=== PATIENT | female | born 1945 | race Caucasian/White ===

== ENCOUNTER → 2023-04-02 15:58 | Outpatient (CLI) | payer OTHER, SELFPAY ==
[2023-04-02 17:22] LABS: Add Manual Diff / Slide Review NO; Basophils Absolute Auto 100 /uL (0-100); Basophils Percent Auto 0.8 % (0-2); Eosinophils Absolute Auto 100 /uL (0-450); Eosinophils Percent Auto 1.5 % (2-4); Hematocrit 42.9 % (36-46); Hemoglobin 14.5 g/dL (12.0-16.0); Lymphocytes Absolute Auto 1500 /uL (1100-4500); Lymphocytes Percent Auto 18.6 % (25-40); Mean Corpuscular HGB Conc 33.9 % (30-36); Mean Corpuscular Hemoglobin 31.6 PG (26-34); Mean Corpuscular Volume 93.3 fL (80-100); Monocytes Absolute Auto 700 /uL (0-900); Monocytes Percent Auto 8.1 % (3-14); Neutrophils Absolute Auto 5800 /uL (1500-7000); Platelet Count 210 X10^3/uL (150-400); Red Cell Distribution Width 12.6 % (11.6-14.8); White Blood Cell Count 8.1 X10^3/uL (4.5-11.0)
[2023-04-02 17:30] LABS: Alanine Aminotransferase 30 IU/L (<35); Albumin 4.5 g/dL (3.5-5.0); Albumin Globulin Ratio 1.4 (1.0-2.8); Alkaline Phosphatase 57 U/L (38-126); BUN Creatinine Ratio 23.2 (6-22); Bilirubin Total 0.8 mg/dL (0.2-1.3); Blood Urea Nitrogen 22 mg/dL (7-17); Calcium 10.4 mg/dL (8.4-10.2); Carbon Dioxide 20 mmol/L (22-32); Chloride 105 mmol/L (98-107); Cholesterol 189 mg/dL (140-199); Estimated Glomerular Filt Rate > 60 mL/min (>60); Globulin 3.2 g/dL (1.7-4.1); Glucose 106 mg/dL (80-110); HDL Cholesterol 42 mg/dL (40-60); HEMOLYSIS < 15 (0-50); LDL Cholesterol Calculated 113 mg/dL (<100); Potassium 3.9 mmol/L (3.4-5.1); Sodium 137 mmol/L (137-145); Total Protein 7.7 g/dL (6.3-8.2); Triglycerides 170 mg/dL (35-150)
[2023-04-02 17:31] LABS: Hemoglobin A1C% w Est Avg Glu 7.3 % (4.0-6.0)
[2023-04-02 17:32] LABS: Creatinine Urine Random 113.2 mg/dL
[2023-04-02 17:37] LABS: Microalbumin Urine Random 0.8 mg/dL (0-1.6)
[2023-04-02 17:47] LABS: Vitamin D 25 Hydroxy (D3) 50.3 ng/mL (30.0-100.0)
[2023-04-02 18:03] LABS: TSH w/ Reflex to FT4 4.51 uIU/mL (0.47-4.68)
[2023-04-02 18:21] LABS: Vitamin B12 589 pg/mL (239-931)
[2023-04-03 15:09] LABS: Aspartate Aminotransferase 36 IU/L (14-36)
[2023-04-03 18:23] LABS: Hep C Virus Ab w/Reflex Quant NEGATIVE s/c (NEGATIVE)
== END ==
PROVIDERS: PCP Family Medicine; Referring Provider Family Medicine; Visit Provider Family Medicine
DX: Z13.220 Encounter for screening for lipoid disorders (principal); Z11.59 Encounter for screening for other viral diseases; E11.9 Type 2 diabetes mellitus without complications; I10 Essential (primary) hypertension; R53.83 Other fatigue; F41.9 Anxiety disorder, unspecified
CPT/HCPCS: 36415; 80053; 80061; 82043; 82306; 82570; 82607; 83036; 84443; 85025; 86803

== ENCOUNTER → 2023-09-15 13:01 | Outpatient (CLI) | payer MEDICARE, SELFPAY ==
--- NOTE | 2023-09-15 13:05 | DI.RAD.S_ITS ---
PROCEDURE: XR KNEE LT 3V INDICATIONS: left knee pain TECHNIQUE: 3 views of the knee were acquired. COMPARISON: None. FINDINGS: Bones: No fractures or dislocations. Tricompartmental osteoarthritic changes with osteophytosis and moderate joint space narrowing of the lateral tibial femoral compartment. Moderate joint space narrowing of the lateral patellofemoral compartment. No suspicious bony lesions. Soft tissues: Trace joint effusion. No suspicious soft tissue calcifications. IMPRESSION: No acute osseous abnormalities. Moderate degenerative changes of the left knee. Dictated by: Jose Garcia M.D. on 09/15/2023 at 14:45 Approved by: Jose Garcia M.D. on 09/15/2023 at 14:45
--- NOTE | 2023-09-15 13:05 | DI.RAD.S_ITS ---
PROCEDURE: XR HIP W PEL IF DONE RT 2V INDICATIONS: Chronic right hip pain TECHNIQUE: AP pelvis with lateral view(s) of the right hip(s). COMPARISON: None. FINDINGS: Bones: No fractures or dislocations. Severe degenerative changes of the right hip with severe joint space narrowing, subchondral sclerosis and osteophytosis. Left hip arthroplasty without evidence of complication. Pelvic ring appears intact. No suspicious bony lesions. Degenerative changes of the visualized lower lumbar spine and pubic symphysis. Soft tissues: The visualized bowel gas pattern is normal. No suspicious soft tissue calcifications. IMPRESSION: 1. Severe degenerative changes of the right hip. 2. Left hip arthroplasty without evidence of complication. Dictated by: Jose Garcia M.D. on 09/15/2023 at 14:44 Approved by: Jose Garcia M.D. on 09/15/2023 at 14:44
== END ==
PROVIDERS: PCP Family Medicine; Referring Provider Family Medicine; Visit Provider Family Medicine
DX: M25.551 Pain in right hip (principal); M25.562 Pain in left knee; G89.29 Other chronic pain; Z96.642 Presence of left artificial hip joint
CPT/HCPCS: 73502; 73562

== ENCOUNTER → 2023-10-29 12:26 | Outpatient (CLI) | payer MEDICARE, SELFPAY ==
[2023-10-29 14:06] LABS: Hemoglobin A1C% w Est Avg Glu 6.3 % (4.0-6.0)
[2023-10-29 14:16] LABS: BUN Creatinine Ratio 19.1 (6-22); Blood Urea Nitrogen 17 mg/dL (7-17); Calcium 10.1 mg/dL (8.4-10.2); Carbon Dioxide 20 mmol/L (22-32); Chloride 108 mmol/L (98-107); Estimated Glomerular Filt Rate > 60 mL/min (>60); Glucose 105 mg/dL (80-110); HEMOLYSIS < 15 (0-50); Potassium 4.8 mmol/L (3.4-5.1); Sodium 139 mmol/L (137-145)
== END ==
PROVIDERS: PCP Family Medicine; Referring Provider Family Medicine; Visit Provider Family Medicine
DX: E11.42 Type 2 diabetes mellitus with diabetic polyneuropathy (principal); I10 Essential (primary) hypertension
CPT/HCPCS: 36415; 80048; 83036

== ENCOUNTER 2023-12-03 13:29 | Emergency (ER) | payer MEDICARE, SELFPAY ==
[2023-12-03] VITALS (16 sets, daily range): BP systolic 87–186; BP diastolic 52–94; PULSE 84–95; RESP 23–43; TEMP 36.8; O2SAT 94–99; BMI 35.5
--- NOTE | 2023-12-03 13:39 | EKG_ITS ---
[facility] [address] [place] [address] Test Date: 2023-12-03 Pat Name: Tierney Rivera Department: [facility] Room: Gender: Female Clinical Program Coordinator: : 1945 Requested By: Order Number: [id number] Reading MD: Lonnie Kellogg MD Measurements Intervals [place] Rate: 94 P: 40 TN: 194 QRS: 78 QRSD: 128 T: 21 QT: 406 QTc: 507 Interpretive Statements Sinus rhythm with occasional premature ventricular complexes Right bundle branch block NO PRIOR TRACING Electronically Signed On 12-03-2023 16:27:21 PDT by Lonnie Kellogg MD
[2023-12-03] MEDS: ONDANSETRON 4 MG/2 ML INJ IV (14:14)
[2023-12-03 14:22] LABS: Add Manual Diff / Slide Review NO; Basophils Absolute Auto 0 /uL (0-100); Basophils Percent Auto 0.4 % (0-2); Eosinophils Absolute Auto 0 /uL (0-450); Eosinophils Percent Auto 0.1 % (2-4); Hematocrit 40.8 % (36-46); Lymphocytes Absolute Auto 700 /uL (1100-4500); Lymphocytes Percent Auto 16.2 % (25-40); Mean Corpuscular HGB Conc 34.4 % (30-36); Mean Corpuscular Hemoglobin 31.8 PG (26-34); Mean Corpuscular Volume 92.6 fL (80-100); Monocytes Absolute Auto 600 /uL (0-900); Monocytes Percent Auto 15.8 % (3-14); Neutrophils Absolute Auto 2700 /uL (1500-7000); Neutrophils Percent Auto 67.5 % (50-75); Platelet Count 202 X10^3/uL (150-400); Red Cell Distribution Width 12.8 % (11.6-14.8); White Blood Cell Count 4.1 X10^3/uL (4.5-11.0)
[2023-12-03 14:36] LABS: Alanine Aminotransferase 20 IU/L (<35); Albumin Globulin Ratio 1.4 (1.0-2.8); Alkaline Phosphatase 56 U/L (38-126); Aspartate Aminotransferase 28 IU/L (14-36); BUN Creatinine Ratio 18.6 (6-22); Blood Urea Nitrogen 18 mg/dL (7-17); Calcium 9.6 mg/dL (8.4-10.2); Carbon Dioxide 16 mmol/L (22-32); Chloride 106 mmol/L (98-107); Estimated Glomerular Filt Rate 60 mL/min (>60); Globulin 2.8 g/dL (1.7-4.1); Glucose 103 mg/dL (80-110); HEMOLYSIS < 15 (0-50); Lipase 148 U/L (23-300); Potassium 3.7 mmol/L (3.4-5.1); Sodium 135 mmol/L (137-145); Total Protein 6.8 g/dL (6.3-8.2)
--- NOTE | 2023-12-03 16:28 | ED.ABDPAIN ---
HPI - Abdominal Pain General Chief Complaint: Abdominal Pain Stated Complaint: diff breathing,shaking Time Seen by Provider: 12/03/23 15:49 Source: patient Mode of arrival: Wheelchair History of Present Illness HPI narrative: 77-year-old female with diagnosis COVID last week, recently seen emergency department would be on 12/02/2023, subsequent urine culture from that visit showed pansensitive E coli, patient is taking doxycycline for respiratory indication, complains of lower abdominal discomfort. No black or red stools, no loose stools. She has not have chest pain. She had some shortness of breath earlier in the week that seems to be improved. Related Data Home Medications Medication Instructions Recorded Confirmed aspirin 81 mg tablet,delayed 81 mg PO DAILY 04/02/23 10/29/23 release hydrocortisone 2.5 % topical cream 1 applic topical BID PRN 04/02/23 10/29/23 multivitamin (Daily Multi-Vitamin 1 tab PO DAILY 04/02/23 10/29/23 tablet) blood-glucose meter (OneTouch #1 ea 06/12/23 10/29/23 Verio Flex Meter) clopidogrel 75 mg tablet 75 mg PO DAILY 06/12/23 10/29/23 nitroglycerin 0.4 mg sublingual mg sublingual 06/12/23 10/29/23 tablet insulin NPH isoph U-100 human 100 20 unit SUBCUT BID 10/29/23 10/29/23 unit/mL (3 mL) subcutaneous pen (Humulin N NPH U-100 Insulin KwikPen) Previous Rx's Medication Instructions Recorded citalopram 40 mg tablet 20 mg (1/2 x 40 mg) PO DAILY #90 04/23/23 tabs oxybutynin chloride 10 mg 10 mg PO DAILY #90 tabs 04/27/23 tablet,extended release 24 hr simvastatin 40 mg tablet 40 mg PO DAILY #90 tabs 05/05/23 BD fine needles #100 ea 05/07/23 BD Ultra fine needles short #200 ea 05/14/23 Blood glucose monitor #1 ea 05/14/23 Pen needles ultra fine #200 ea 05/14/23 Test strips #100 ea 05/14/23 gabapentin 300 mg capsule 600 mg (2 x 300 mg) PO BEDTIME #90 06/12/23 caps blood sugar diagnostic (OneTouch #200 ea 07/21/23 Verio test strips) glipizide 5 mg tablet 5 mg PO BID #180 tabs 08/10/23 lisinopril 40 mg tablet 40 mg PO DAILY #90 tabs 08/10/23 quetiapine 25 mg tablet 50 mg (2 x 25 mg) PO DAILY #180 09/28/23 tabs buspirone 5 mg tablet 5 mg PO BID #60 tabs 10/29/23 dulaglutide 0.75 mg/0.5 mL 0.75 mg (0.5 mL) SUBCUT QWEEK #2 mL 10/29/23 subcutaneous pen injector metoprolol succinate 100 mg 100 mg PO DAILY #90 tabs 11/26/23 tablet,extended release 24 hr nitrofurantoin 100 mg PO Q12H 7 days #14 caps 12/03/23 monohydrate/macrocrystals 100 mg capsule (Macrobid) Allergies Allergy/AdvReac Type Severity Reaction Status Date / Time crab Allergy Severe Abdominal Verified 10/29/23 11:27 Pain penicillin G Allergy Mild Verified 10/29/23 11:27 pantoprazole Allergy Unknown Verified 10/29/23 11:27 sertraline Allergy Unknown Diarrhea Verified 10/29/23 11:27 shellfish derived Allergy Unknown Verified 10/29/23 11:27 Sulfa (Sulfonamide AdvReac Severe ITCHING Verified 10/29/23 11:27 Antibiotics) bupropion AdvReac Unknown Diarrhea Verified 10/29/23 11:27 Review of Systems Review of Systems Narrative: see HPI Patient History Medical History (Updated 12/03/23 @ 16:55 by Alexey Medina MD) Osteoarthritis Allergies Depression Shoulder pain Osteoporosis Lumbar disc disease Foot pain Chronic back pain Cervical spine disease Mumps Chicken pox History of urinary incontinence Hemorrhoid Colon polyps Burning chest pain Pulmonary hypertension Cardiac arrhythmia Sleep apnea (~2006) Fecal incontinence Type 2 diabetes mellitus with peripheral neuropathy (~2003) Overactive bladder Anxiety Essential hypertension Surgical History (Updated 06/07/23 @ 16:28 by Rene Amor MD) Hx of percutaneous left heart catheterization (~04/2023) Anesthesia History of cataract removal with insertion of prosthetic lens History of cardiac radiofrequency ablation History of left hip replacement (~2017) History of total replacement of right shoulder joint (~2021) History of cholecystectomy (~2021) Family History (Updated 04/22/23 @ 18:40 by Grace Suazo) Father Cancer Mother Stroke Social History Smoking Status: Never smoker Smoking Status: Never smoker Substance Use Type: does not use Exam Narrative Exam Narrative: GENERAL: Well-developed patient, in mild distress. HEAD: Atraumatic. Normocephalic. EYES: Pupils equal round and reactive. Extraocular motions intact. No scleral icterus. No injection or drainage. ENT: Nose without bleeding, purulent drainage. Throat without erythema, tonsillar hypertrophy or exudate. Airway patent. NECK: Trachea midline. Non tender CARDIOVASCULAR: Regular rate and rhythm without murmurs, gallops, or rubs. RESPIRATORY: Clear to auscultation. Breath sounds equal bilaterally. No wheezes, rales, or rhonchi. GASTROINTESTINAL: Obese, lower abdominal discomfort, no guarding or rebound tenderness, unremarkable bowel tones, nondistended. EXTREMITIES: No edema or joint tenderness. BACK: Nontender without deformity or crepitance. No flank tenderness. NEURO: AOx3. Nonfocal neuro exam. SKIN: No rash or erythema of visible areas Initial Vital Signs Initial Vital Signs: Vital Signs Temperature 98.2 F 12/03/23 13:35 Pulse Rate 95 H 12/03/23 13:35 Respiratory Rate 24 12/03/23 13:35 Blood Pressure 87/52 L 12/03/23 13:35 Pulse Oximetry 98 12/03/23 13:35 Oxygen Delivery Method Room Air 12/03/23 13:35 Course Orders Ordered: ED Orders 12/03/23 13:39 EKG-12 Lead Stat 12/03/23 14:05 Complete Blood Count AUTO DIFF Stat Comprehensive Metabolic Panel Stat Lipase Stat 12/03/23 16:20 Ictotest Urine Stat Urinalysis and Microscopic Stat Urine Culture Stat 12/03/23 16:31 CT abdomen pelvis w con Stat 12/03/23 16:32 XR chest 1V Stat Discontinued Medications Sodium Chloride (Normal Saline 0.9%) 1,000 mls @ 500 mls/hr IV BOLUS ONE Stop: 12/03/23 18:30 Last Infusion: 12/03/23 18:49 Dose: Infused Documented By: Admin: 12/03/23 16:34 Dose: 500 mls/hr Documented By: TRACI Nitrofurantoin Macrocrystals (Nitrofurantoin Er 100 Mg Capsule) 100 mg PO NOW ONE Stop: 12/03/23 16:48 Last Admin: 12/03/23 17:22 Dose: 100 mg Documented By: ALFREDO Ondansetron HCl (Ondansetron 4 Mg/2 Ml Inj) 4 mg IV NOW PRN PRN Reason: Nausea And Vomiting Last Admin: 12/03/23 14:14 Dose: 4 mg Documented By: TRACI Ondansetron HCl (Ondansetron 4 Mg Odt) 4 mg PO NOW PRN PRN Reason: Nausea And Vomiting Vital Signs Vital signs: Vital Signs - 8 hr 12/03/23 13:35 12/03/23 14:23 12/03/23 14:30 Temperature 98.2 F Pulse Rate 95 H 91 H 91 H Respiratory Rate 24 36 H 34 H Blood Pressure 87/52 L Pulse Oximetry 98 99 99 Oxygen Delivery Method Room Air 12/03/23 14:30 12/03/23 15:00 12/03/23 15:01 Temperature Pulse Rate 89 Respiratory Rate 37 H Blood Pressure 124/64 158/73 H Pulse Oximetry 98 Oxygen Delivery Method 12/03/23 15:01 12/03/23 15:30 12/03/23 15:31 Temperature Pulse Rate 88 90 Respiratory Rate 29 H 37 H Blood Pressure 156/72 H Pulse Oximetry 98 94 Oxygen Delivery Method 12/03/23 15:31 12/03/23 16:00 12/03/23 16:00 Temperature Pulse Rate 90 84 Respiratory Rate 41 H 33 H Blood Pressure 156/70 H Pulse Oximetry 95 96 Oxygen Delivery Method 12/03/23 16:20 12/03/23 16:20 12/03/23 16:30 Temperature Pulse Rate 92 H 90 Respiratory Rate 43 H 34 H Blood Pressure 186/94 H Pulse Oximetry 97 96 Oxygen Delivery Method 12/03/23 17:05 12/03/23 17:25 12/03/23 17:25 Temperature Pulse Rate 92 H 91 H Respiratory Rate 30 H 30 H Blood Pressure 181/84 H Pulse Oximetry 99 96 Oxygen Delivery Method 12/03/23 17:30 12/03/23 17:30 12/03/23 18:00 Temperature Pulse Rate 90 92 H Respiratory Rate 25 H 31 H Blood Pressure 173/79 H Pulse Oximetry 94 96 Oxygen Delivery Method 12/03/23 18:01 12/03/23 18:01 12/03/23 18:30 Temperature Pulse Rate 90 Respiratory Rate 23 Blood Pressure 168/72 H 170/77 H Pulse Oximetry 94 Oxygen Delivery Method 12/03/23 18:30 Temperature Pulse Rate 91 H Respiratory Rate Blood Pressure Pulse Oximetry 97 Oxygen Delivery Method MDM - Abdominal Pain Lab Data Attestation: I reviewed the patient's lab results. 12/03/23 14:05 12/03/23 14:05 Labs: Lab Results 12/03/23 12/03/23 Range/Units 14:05 16:20 WBC 4.1 L (4.5-11.0) X10^3/uL RBC 4.40 (4.0-5.2) X10^6/uL Hgb 14.0 (12.0-16.0) g/dL Hct 40.8 (36-46) % MCV 92.6 (80-100) fL MCH 31.8 (26-34) PG MCHC 34.4 (30-36) % RDW 12.8 (11.6-14.8) % Plt Count 202 (150-400) X10^3/uL Neut % (Auto) 67.5 (50-75) % Lymph % (Auto) 16.2 L (25-40) % [place] % (Auto) 15.8 H (3-14) % Eos % (Auto) 0.1 L (2-4) % Baso % (Auto) 0.4 (0-2) % Neut # (Auto) 2700 (3413-3025) /uL Lymph # (Auto) 700 L (7862-8188) /uL [place] # (Auto) 600 (0-900) /uL Eos # (Auto) 0 (0-450) /uL Baso # (Auto) 0 (0-100) /uL Sodium 135 L (137-145) mmol/L Potassium 3.7 (3.4-5.1) mmol/L Chloride 106 (98-107) mmol/L Carbon Dioxide 16 L (22-32) mmol/L BUN 18 H (7-17) mg/dL Creatinine 0.97 (0.52-1.04) mg/dL Estimated GFR 60 (>60) mL/min BUN/Creatinine Ratio 18.6 (6-22) Glucose 103 (80-110) mg/dL Calcium 9.6 (8.4-10.2) mg/dL Total Bilirubin 1.0 (0.2-1.3) mg/dL AST 28 (14-36) IU/L ALT 20 (<35) IU/L Alkaline Phosphatase 56 (38-126) U/L Total Protein 6.8 (6.3-8.2) g/dL Albumin 4.0 (3.5-5.0) g/dL Globulin 2.8 (1.7-4.1) g/dL Albumin/Globulin Ratio 1.4 (1.0-2.8) Lipase 148 (23-300) U/L Urine Color Yellow Urine Appearance Clear Urine pH 7.0 (4.5-8.0) Ur Specific [place] 1.010 (1.000-1.035) Urine Protein 2+ H (Negative) Urine Glucose (UA) Negative (Negative) g/dL Urine Ketones 3+ H (NEGATIVE) Urine Occult Blood Negative (Negative) Urine Nitrate Negative (Negative) Urine Bilirubin 1+ H (NEGATIVE) Ur Bilirubin Confirm Negative (Negative) Urine Urobilinogen 2.0 H (0.2) E.U./dL Ur Leukocyte Esterase 1+ H (NEGATIVE) Urine RBC 1-5/hpf (0-5/HPF) Urine WBC 5-10/hpf H (0-5/HPF) Ur Squamous Epith Cells 10-30 /hpf H (0-5/HPF) Urine Bacteria Few (2-10) H (None) Urine Mucus 1+ H (Negative) Ur Culture Indicated? Specimen cultured Vol Urine Centrifuged 10ml (spun) Imaging Data CT scan - abdomen/pelvis: Radiologist's Impression: [place] [address] CT Scan Report Signed Patient: Tierney Rivera MR#: [id number] : 1945 Acct:[id number] Age/Sex: 77 / F Date of Service: 12/03/23 Loc: ED Accession Number: [id number] Procedure: CT abdomen pelvis w con Ordering Provider: Alexey Medina MD PROCEDURE: CT ABDOMEN PELVIS W CON INDICATIONS: Abdominal pain TECHNIQUE: After the administration of intravenous contrast, axial sections acquired from the lung bases to the pubic symphysis. Coronal and sagittal reformats were performed. For radiation dose reduction, the following was used: automated exposure control, adjustment of mA and/or kV according to patient size. COMPARISON: None. FINDINGS: Image quality: Streak metal artifact from left hip arthroplasty limits evaluation of surrounding soft tissues.. Lower Chest: No significant findings. ABDOMEN: Liver: No solid mass. Hepatic steatosis Gallbladder: Surgically absent. Biliary ducts: No biliary dilation. Pancreas: No ductal dilation. Spleen: Size is within normal limits. Adrenal Glands: No adrenal nodules. Kidneys and Ureters: No hydronephrosis. No solid mass. No complex renal cystic lesion which requires follow up. Stomach and Bowel: Normal colonic caliber, without significant wall thickening. Peritoneum: No abnormal intraperitoneal fluid. No free air. Ventral Wall: No significant ventral hernia. Abdominal Nodes: No retroperitoneal or mesenteric adenopathy by size criteria. Vessels: Aorta and inferior vena cava are normal in size. Aorto bi iliac atherosclerotic calcifications. PELVIS: Pelvic Organs: Unremarkable. Bladder: Bladder is collapsed limiting evaluation. Pelvic Nodes: No enlarged lymph nodes. Miscellaneous: No inguinal hernias are seen. Bones: No aggressive osseous abnormality. Degenerative changes of the spine without acute vertebral body compression fracture. Status post left hip total arthroplasty with prosthetic elements in appropriate position. Moderate to severe degenerative changes of the right hip. IMPRESSION: Hepatic steatosis. No other acute abdominopelvic process to explain patient's symptoms. Approved by: Moni Tamayo M.D.,Ph.D. on 12/03/2023 at 17:27 ECG Data Attestation: I personally reviewed and interpreted this ECG as follows: Interpretation: Normal sinus rhythm with rate of 94. No obvious ST segment elevation changes. T-wave inversion lead 3 noted. PVC noted. Right bundle-branch block pattern. PA 194. QRS 128. QTC 507. MDM Narrative Medical decision making narrative: Lower abdominal pain, mild lower tenderness, recent dx Covid, found to have positive urine culture from ED visit 11/30/23 showing pansensitive Ecoli, no tetracycline noted on Sensitivities, add oral Macrobid abx. Screening labs negative. Rx for Macrobid sent to her pharmacy. CT Abd Pelvis no acute changes. Recheck with PCP Thursday, return precautons discussed Discharge Plan Departure Patient Disposition: Home Clinical Impression: Abdominal pain, Urinary tract infection, COVID Activity Restrictions/Additional Instructions: Recent diagnosis COVID last week, reconfirmed positive swab from ED visit at [facility] on 12/02/[facility]23. Subsequent urine culture from that visit showed urinary tract infection with a bacteria called E coli, which is sensitive to all antibiotics that were tested. Unfortunately there was no doxycycline tested, which you had been taking for respiratory indications. You had lower abdominal discomfort. CT abdominopelvic imaging tonight showed no acute changes. You had numerous drug allergies including penicillins and sulfa antibiotics. Ciprofloxacin and levofloxacin could be considered, however these can cause can confusion and tendon problems and heart conduction problems. You had significant reaction to penicillin, unclear if you have a any reaction to cephalosporins. For urinary tract infection coverage for now we will add Macrobid for urinary tract infection coverage for now. Prescriptions: New nitrofurantoin monohyd/m-cryst [Macrobid] 100 mg capsule 100 mg PO Q12H 7 Days Qty: 14 0RF Rx Instructions: must administer with a meal/food No Action aspirin 81 mg tablet,delayed release (DR/EC) 81 mg PO DAILY hydrocortisone 2.5 % cream 1 applic topical BID PRN multivitamin [Daily Multi-Vitamin] Tablet 1 tab PO DAILY Humulin N NPH Insulin KwikPen 100 unit/mL (3 mL) insulin pen 20 unit SUBCUT BID citalopram 40 mg tablet 20 mg PO DAILY Qty: 90 2RF clopidogrel 75 mg tablet 75 mg PO DAILY (DME) blood-glucose meter [OneTouch Verio Flex meter] Misc See Rx Instructions .ROUTE .MEDSUPPLY Qty: 1 Patient Comments: [NO ORIGINAL SIG] Rx Instructions: As directed nitroglycerin 0.4 mg tablet, sublingual sublingual gabapentin 300 mg capsule 600 mg PO BEDTIME Qty: 90 2RF buspirone 5 mg tablet 5 mg PO BID Qty: 60 2RF dulaglutide 0.75 mg/0.5 mL pen injector 0.75 mg SUBCUT QWEEK Qty: 2 2RF oxybutynin chloride 10 mg tablet extended release 24hr 10 mg PO DAILY Qty: 90 3RF simvastatin 40 mg tablet 40 mg PO DAILY Qty: 90 3RF (DME) BD fine needles See Rx Instructions .Route .MEDSUPPLY Qty: 100 5RF Rx Instructions: As directed twice daily for insulin injection (DME) Pen needles ultra fine 31GX8 mm short See Rx Instructions .Route .MEDSUPPLY Qty: 200 3RF Rx Instructions: As directed twice daily (DME) BD Ultra fine needles short 8mmX31 gauge See Rx Instructions .Route .MEDSUPPLY Qty: 200 5RF Rx Instructions: As directed twice daily for insulin injections (DME) Blood glucose monitor See Rx Instructions .Route .MEDSUPPLY Qty: 1 0RF Rx Instructions: As directed for twice daily use (DME) Test strips See Rx Instructions .Route .MEDSUPPLY Qty: 100 11RF Rx Instructions: As directed twice daily (DME) OneTouch Verio test strips Strip See Rx Instructions .ROUTE .MEDSUPPLY Qty: 200 3RF Rx Instructions: As directed, to test glucose level twice daily lisinopril 40 mg tablet 40 mg PO DAILY Qty: 90 3RF glipizide 5 mg tablet 5 mg PO BID Qty: 180 3RF quetiapine 25 mg tablet 50 mg PO DAILY Qty: 180 3RF metoprolol succinate 100 mg tablet extended release 24 hr 100 mg PO DAILY Qty: 90 3RF Referrals: Rene Amor MD [Primary Care Provider] - Stand Alone Forms: Patient Portal/API
[2023-12-03 16:31] LABS: Appearance Urine UA CLEAR; Bilirubin Urine UA 1+ (NEGATIVE); Color Urine UA YELLOW; Glucose Urine UA NEGATIVE (Negative); Ketones Urine UA 3+ (NEGATIVE); Leukocyte Esterase Urine UA 1+ (NEGATIVE); Nitrite Urine UA NEGATIVE (Negative); Occult Blood Urine UA NEGATIVE (Negative); Protein Urine UA 2+ (Negative)
--- NOTE | 2023-12-03 16:31 | DI.CT.S_ITS ---
PROCEDURE: CT ABDOMEN PELVIS W CON INDICATIONS: Abdominal pain TECHNIQUE: After the administration of intravenous contrast, axial sections acquired from the lung bases to the pubic symphysis. Coronal and sagittal reformats were performed. For radiation dose reduction, the following was used: automated exposure control, adjustment of mA and/or kV according to patient size. COMPARISON: None. FINDINGS: Image quality: Streak metal artifact from left hip arthroplasty limits evaluation of surrounding soft tissues.. Lower Chest: No significant findings. ABDOMEN: Liver: No solid mass. Hepatic steatosis Gallbladder: Surgically absent. Biliary ducts: No biliary dilation. Pancreas: No ductal dilation. Spleen: Size is within normal limits. Adrenal Glands: No adrenal nodules. Kidneys and Ureters: No hydronephrosis. No solid mass. No complex renal cystic lesion which requires follow up. Stomach and Bowel: Normal colonic caliber, without significant wall thickening. Peritoneum: No abnormal intraperitoneal fluid. No free air. Ventral Wall: No significant ventral hernia. Abdominal Nodes: No retroperitoneal or mesenteric adenopathy by size criteria. Vessels: Aorta and inferior vena cava are normal in size. Aorto bi iliac atherosclerotic calcifications. PELVIS: Pelvic Organs: Unremarkable. Bladder: Bladder is collapsed limiting evaluation. Pelvic Nodes: No enlarged lymph nodes. Miscellaneous: No inguinal hernias are seen. Bones: No aggressive osseous abnormality. Degenerative changes of the spine without acute vertebral body compression fracture. Status post left hip total arthroplasty with prosthetic elements in appropriate position. Moderate to severe degenerative changes of the right hip. IMPRESSION: Hepatic steatosis. No other acute abdominopelvic process to explain patient's symptoms. Approved by: Moni Tamayo M.D.,Ph.D. on 12/03/2023 at 17:27
--- NOTE | 2023-12-03 16:32 | DI.RAD.S_ITS ---
PROCEDURE: XR CHEST 1V INDICATIONS: Shortness of breath TECHNIQUE: One view of the chest was acquired. COMPARISON: None. FINDINGS: Surgical changes and devices: Right shoulder arthroplasty. Overlying monitoring wires. Lungs and pleura: Lungs are clear. No pleural effusions or pneumothorax. Mediastinum: Mediastinal contours appear normal. Heart size is normal. Bones and chest wall: No suspicious bony lesions. Overlying soft tissues appear unremarkable. IMPRESSION: No acute cardiopulmonary abnormality is seen. Dictated by: Vicky Card M.D. on 12/03/2023 at 20:02 Approved by: Vicky Card M.D. on 12/03/2023 at 20:03
[2023-12-03] MEDS: SODIUM CHLORIDE 0.9% 1,000 ML 500 ML IV (16:34)
[2023-12-03 16:41] LABS: RBC Urine 1-5/HPF (0-5/HPF); Urine Volume 10mL (spun)
[2023-12-03 16:42] LABS: Bacteria Urine Few (2-10); Culture Indicated Urine Specimen Cultured; Mucus Urine 1+ (Negative); Squamous Epithelial Cell Urine 10-30 /HPF (0-5/HPF); WBC Urine 5-10/HPF (0-5/HPF)
[2023-12-03 16:45] LABS: Ictotest Urine Negative (Negative)
[2023-12-03] MEDS: NITROFURANTOIN ER 100 MG CAPSULE PO (17:22)
== END 2023-12-03 18:53 | disposition home or self-care (01) ==
PROVIDERS: Emergency Provider Emergency Medicine; PCP Family Medicine
DX: R10.30 Lower abdominal pain, unspecified (principal); N39.0 Urinary tract infection, site not specified; U07.1 COVID-19; R06.02 Shortness of breath; I45.10 Unspecified right bundle-branch block
CPT/HCPCS: 36415; 71045; 74177; 80053; 81001; 83690; 85025; 87086; 93005; 93010; 96361; 96374; 99284; J2405; Q9967